=== PATIENT | female | born 1950 | race Caucasian/White ===

== ENCOUNTER 2022-04-02 13:28 | Outpatient (CLI) | payer MEDICARE, OTHER, SELFPAY ==
--- NOTE | 2022-04-02 13:40 | CRLHL7_ITS ---
For Patients: As a result of the Century Cures Act, medical imaging exams and procedure reports are released immediately into your electronic medical record. You may view this report before your referring provider. If you have questions, please contact your health care provider. BILATERAL MAMMOGRAM WITH COMPUTER-AIDED DETECTION AND TOMOSYNTHESIS TECHNIQUE: CC and MLO views were obtained. These mammographic images have been obtained using full-field digital technique. These mammographic images were interpreted with the benefit of computer-aided detection. Breast Tomosynthesis was used in this interpretation. COMPARISON FILM: 03/30/2021, 03/28/2020, 03/26/2019. FINDINGS: There are scattered areas of fibroglandular density IMPRESSION: There is no radiographic evidence for malignancy. ASSESSMENT: BI-RADS Category 1: Negative RECOMMENDATION: Routine screening mammogram in 1 year. A lay language report of this examination will be provided to the patient. Mode Whalen M.D. Diagnostic Radiologist [email or web address] FLETCHER/Dictated by: Mode Whalen MD @ 04/03/2022 10:51:00 AM (Electronically Signed)
== END 2022-04-02 13:29 | disposition home or self-care (01) ==
LOC: MAMMO 13:30
PROVIDERS: PCP Internal Medicine; Visit Provider Internal Medicine
DX: Z12.31 Encounter for screening mammogram for malignant neoplasm of breast (principal); R92.2 Inconclusive mammogram
CPT/HCPCS: 77063; 77067

== ENCOUNTER 2023-04-03 09:04 | Outpatient (CLI) | payer OTHER, SELFPAY | END 2023-04-03 09:05 | disposition home or self-care (01) | PROVIDERS: PCP Internal Medicine; Referring Provider Internal Medicine; Visit Provider Internal Medicine | DX: M85.80 Other specified disorders of bone density and structure, unspecified site (principal); E03.9 Hypothyroidism, unspecified | CPT/HCPCS: 82306; 84443 ==

== ENCOUNTER 2023-04-08 18:49 | Outpatient (CLI) | payer OTHER, SELFPAY ==
--- NOTE | 2023-04-08 19:00 | CRLHL7_ITS ---
For Patients: As a result of the Cures Act, medical imaging exams and procedure reports are released immediately into your electronic medical record. You may view this report before your referring provider. If you have questions, please contact your health care provider. BILATERAL SCREENING MAMMOGRAM WITH COMPUTER-AIDED DETECTION AND TOMOSYNTHESIS TECHNIQUE: CC and MLO views were obtained. These mammographic images have been obtained using full-field digital technique. These mammographic images were interpreted with the benefit of computer-aided detection. Breast tomosynthesis was used in this interpretation. COMPARISON FILM: 04/02/22, 03/30/21, 03/28/20. FINDINGS: There are scattered areas of fibroglandular density. IMPRESSION: There is no radiographic evidence for malignancy. ASSESSMENT: BI-RADS Category 1: Negative RECOMMENDATION: Routine screening mammogram in 1 year. A lay language report of this examination will be provided to the patient. JUANY HUGGINS M.D. Diagnostic/Nuclear Medicine Radiologist [email or web address] MONTSERRAT:hao Transcribed: 04/09/2023, 6:[address]/Dictated by: Juany Huggins MD @ 04/09/2023 8:48:00 AM (Electronically Signed)
== END 2023-04-08 18:50 | disposition home or self-care (01) ==
LOC: MAMMO 18:50
PROVIDERS: PCP Internal Medicine; Visit Provider Internal Medicine
DX: Z12.31 Encounter for screening mammogram for malignant neoplasm of breast (principal)
CPT/HCPCS: 77063; 77067

== ENCOUNTER 2023-04-30 14:14 | Outpatient (CLI) | payer OTHER, SELFPAY ==
--- NOTE | 2023-04-30 14:30 | CRLHL7_ITS ---
For Patients: As a result of the Century Cures Act, medical imaging exams and procedure reports are released immediately into your electronic medical record. You may view this report before your referring provider. If you have questions, please contact your health care provider. DXA BONE MINERAL DENSITY STUDY Reason for exam: Osteopenia. Current height (in): 63.5. Weight (lb): 130. Menopause age: 46. Ethnicity: White. 1. Have you had a previous hip or vertebral fracture? No. 2. Have you had any fractures during your adult life which did not result from significant trauma (e.g., auto accident)? No. 3. Did either of your parents have a hip fracture? No. 4. Do you smoke? No. 5. Have you ever taken Glucocorticoids? No. 6. Do you have rheumatoid arthritis? No. 7. Do you have secondary osteoporosis? No. 8. Do you drink 3 or more alcoholic drinks per day? No. 9. Are you being treated for osteoporosis? No. 10. Have you ever taken any of the following medications: Actonel, Evista, Fosamax, Miacalcin, Reclast, Boniva, Forteo, HRT (i.e., estrogen/hormone therapy), Protelos, Prolia, Vitamin D, Calcium, other ??? please specify. ANSWER: Yes, Fosamax, vitamin D, and calcium. 11. Do you have any of the following medical conditions: Anorexia or bulimia, asthma or emphysema, end stage renal disease, hyperparathyroidism, any seizure disorders, cancer, inflammatory bowel diseases, hysterectomy, other ??? please specify. ANSWER: Yes, Hysterectomy and hypothyroidism. 12. What was your maximum height (inches)? 64.5. 13. Do you perform weight bearing exercise regularly? No. 14. Do you regularly consume dairy products? No. 15. Do you drink caffeinated beverages? No. If female: 16. At what age did your period start? 13. 17. Are you premenopausal? No. 18. How many full-term pregnancies have you had? 1. 19. Have you ever missed your period for more than 6 months in a row (not including or menopause)? No. TECHNIQUE: Bone mineral density study was performed using the [employer]. FINDINGS: The results of the study expressed as bone mineral density (BMD) are as follows: Lumbar spine L1 to L4: BMD: 0.953 g/cm2. T-score: -0.9. Z-score: 1.5 Neck Left: BMD: 0.592 g/cm2. T-score: -2.3. Z-score: -0.3 Right: BMD: 0.566 g/cm2. T-score: -2.5. Z-score: -0.5 Total Left: BMD: 0.718 g/cm2. T-score: -1.8. Z-score: -0.1 Right: BMD: 0.698 g/cm2. T-score: -2.0. Z-score: -0.3 IMPRESSION: Osteoporosis. *Comparison exams done prior to 02/2020 were performed on different unit, [employer]. COMPARISON: Compared with scan of 04/20/2018, the bone mineral density has decreased by 7.4 percent at the spine and decreased by 2.1 percent at the hip. Compared with scan of 03/06/2015, the bone mineral density has increased by 1.7 percent at the spine and decreased by 3.6 percent at the hip. Mode Whalen M.D. Diagnostic Radiologist [email or web address] CORI/raquel garcía/Dictated by: Mode Whalen MD @ 05/01/2023 8:57:00 AM (Electronically Signed)
== END 2023-04-30 14:15 | disposition home or self-care (01) ==
PROVIDERS: PCP Internal Medicine; Visit Provider Internal Medicine
DX: M85.851 Other specified disorders of bone density and structure, right thigh (principal); M85.852 Other specified disorders of bone density and structure, left thigh; M81.0 Age-related osteoporosis without current pathological fracture
CPT/HCPCS: 77080

== ENCOUNTER 2024-04-09 09:01 | Outpatient (CLI) | payer OTHER, SELFPAY ==
--- OUTSIDE RECORDS SUMMARY | 2024-04-09 09:04 | XMS_ITS | Clinical Summary ---
Author Organization [facility] Address [place], [place] [address] Care Team Providers Care Mental Telepathist Name Role Phone Padmini López MD Primary Care Provider [phone]- [phone] Allergies Active Allergy Reactions Criticality Noted Date Comments Oxybutynin 04/18/2008 Neck swelled Medications Medication Sig Dispensed Refills Start Date End Date Status LEVOTHYROXINE 88 MCG TAB TAKE ONE TABLET BY MOUTH DAILY 90 Each 0 04/02/2009 Active calcium carbonate-vitamin D3, 500 mg-400 units, (CALCIUM 500 + D) tablet Take 2 tablets by mouth once daily. 0 01/30/2012 Active famotidine (PEPCID) 20 mg tablet Take 1 tablet by mouth 2 times daily. 0 03/10/2020 Active alendronate (FOSAMAX) 35 mg tablet 05/18/2023 Active Active Problems Problem Noted Date Diagnosed Date Hallux rigidus 10/13/2007 Unspecified hypothyroidism 03/26/2007 Esophageal reflux 03/26/2007 Anxiety state, unspecified 03/26/2007 Eating disorder, unspecified 03/26/2007 Immunizations Name Administration Dates Next Due AMB Influenza, IIV3 (Age >=3 years)(Flu Clinic [facility]) 07/19/2008 Amb Influenza, Inactivated A IIV4 (Age 65+ Years) Preserv Free 06/07/2020 Td (Age >=7 Years) 04/26/2003 Family History * Patient is adopted Relation Name Status Comments Father adopte Mother adopted Social History Tobacco Use Types Packs/Day Years Used Date Smoking Tobacco: Former Cigarettes 1 6 1 966 - 1972 Smokeless Tobacco: Never Tobacco Cessation:Counseling Given: Yes Alcohol Use Standard Drinks/Week Comments Yes 0 (1 standard drink = 0.6 oz pur e alcohol) occasional Social Connections Answer Date Recorded Frequency of Communication with Friends and Fami ly Not on file 03/21/2023 Financial Resource Strain Answer Date R ecorded Difficulty of Paying Living Expenses Not on file 09/22/2021 Difficulty of Paying Living Expenses Not on file 09/22/2021 Sex and Gender Information Value Date Recorded Sex Assigned at Not on file Gender Identity Not on file Sexual Orientation Not on file Obstetrics History Last Filed Vital Signs Vital Sign Reading Time Taken Comments Blood Pressure 123/79 06/12/2023 1:49 PM CDT Pulse 71 06/12/2023 1:49 PM CDT Temperature 37.1 ??C (98.8 ??F) 06/12/2023 1:49 PM CD T Respiratory Rate 16 03/10/2020 10:46 AM CDT Oxygen Saturation 98% 06/12/2023 1:49 PM CDT Inhaled Oxygen Concentration - - Weight 62.4 kg (137 lb 9.6 oz) 03/10/2020 10:46 AM CDT Height 161 cm (5' 3.39) 03/10/2020 10:46 AM CDT Body Mass Index 24.08 03/10/2020 10:46 AM CDT Plan of Treatment Health Maintenance Due Date Last Done Comments Tdap [birth year]/25/1961 Depression screening for age 12+ 1960 Hepatitis C screening for age 18-79 1966 Colonoscopy through age 75 1993 Zoster (shingles) series for age 50+ (1 of 2) 1998 Lipids for age 45-75 04/26/2013 04/26/2008 Tetanus booster 04/26/2013 04/26/2003 DEXA/DXA scan for age 65+ 2013 04/30/2007 Medicare Wellness for age 65+ 2013 Pneumococcal series for age 65+ (1 of 1 - PCV) 2013 BMI (ht and wt on same day) for age 18+ 03/10/2021 03/10/2020 COVID-19 vaccine series ( season) 2023 03/29/2022, 07/31/2021, 11/06/2020 Influenza for age 65+ 05/23/2024 06/07/2020, 008 Procedures Procedure Name Priority Date/Time Associated Diagnosis Comments LIPID PANEL Routine 04/26/2008 7:52 AM CDT Screening Lipid Disorders XR DXA BONE DENSITY 2 SITES AXIAL Routine 04/30/2007 9:45 AM CDT Absence Of Menstruation from Last 3 Months or Most Recently Relevant to Health Maintenance Results * LIPID PANEL (04/26/2008 7:52 AM CDT) CHOLESTEROL,TOTAL 197 110 - 199 mg/dL [facility] TRIGLYCERIDES 90 <150 mg/dL [facility] HDL CHOLESTEROL 70 >40 mg/dL [facility] CHOL/HDL RATIO 2.81 <4.51 [facility] LDL CHOLESTEROL 109 <131 mg/dL [facility] PATIENT STATUS Fasting [facility] Blood specimen (specimen) BLOOD SPECIMEN / Unknown 04/26/2008 7:52 AM CDT 04/26/2008 7:51 AM CDT Mariano Mathur MD CHEMISTRY Performing Organization Address City/State/[facility] Co de Phone Number [facility] [address] [place] [address] * XR DEXA BONE DENSITY 2 SITES (04/30/2007 9:45 AM CDT) Anatomical Region Laterality Modality Spine, HIPS, HIPL, HIPR Other 04/30/2007 9:45 AM CDT Narrative 05/06/2007 9:55 AM CDT Please see scanned document for results of this study. Procedure Note Zia Green MD - 05/06/2007 Please see scanned document for results of this study. Mariano Mathur MD DEXA from Last 3 Months or Most Recently Relevant to Health Maintenance Care Teams Mental Telepathist Relationship Specialty Start Date End Date Padmnii López MD [address] [place] [address] PCP - General Internal Medicine 06/04/19
--- NOTE | 2024-04-09 09:15 | CRLHL7_ITS ---
For Patients: As a result of the Century Cures Act, medical imaging exams and procedure reports are released immediately into your electronic medical record. You may view this report before your referring provider. If you have questions, please contact your health care provider. BILATERAL SCREENING MAMMOGRAM WITH COMPUTER-AIDED DETECTION AND TOMOSYNTHESIS TECHNIQUE: CC and MLO views were obtained. These mammographic images have been obtained using full-field digital technique. These mammographic images were interpreted with the benefit of computer-aided detection. Breast Tomosynthesis was used in this interpretation. COMPARISON FILM: 04/08/23, 04/02/22, 03/30/21. FINDINGS: There are scattered areas of fibroglandular density. IMPRESSION: There is no radiographic evidence for malignancy. ASSESSMENT: BI-RADS Category 1: Negative RECOMMENDATION: Routine screening mammogram in 1 year. A lay language report of this examination will be provided to the patient. Mode Whalen M.D. Diagnostic Radiologist [email or web address] SP/Dictated by: Mode Whalen MD @ 04/09/2024 11:44:00 AM (Electronically Signed)
== END 2024-04-09 09:02 | disposition home or self-care (01) ==
LOC: MAMMO 09:03
PROVIDERS: PCP Internal Medicine; Visit Provider Internal Medicine
DX: Z12.31 Encounter for screening mammogram for malignant neoplasm of breast (principal)
CPT/HCPCS: 77063; 77067

== ENCOUNTER 2024-04-12 16:40 | Outpatient (CLI) | payer OTHER, SELFPAY ==
--- OUTSIDE RECORDS SUMMARY | 2024-04-12 09:27 | XMS_ITS | Clinical Summary ---
Author Organization [employer] [facility] Address [place], [place] [address] Care Team Providers Care Water Team Leader Name Role Phone Padmini López MD Primary Care Provider +1- [phone] Allergies Active Allergy Reactions Criticality Noted Date [...] CDT) CHOLESTEROL,TOTAL 197 110 - 199 mg/dL [facility] TRIGLYCERIDES 90 <150 mg/dL [facility] HDL CHOLESTEROL 70 >40 mg/dL [facility] CHOL/HDL RATIO 2.81 <4.51 [facility] LDL CHOLESTEROL 109 <131 mg/dL [facility] PATIENT STATUS Fasting [facility] Blood specimen (specimen) BLOOD SPECIMEN / Unknown 04/26/2008 7:52 AM CDT 04/26/2008 7:51 AM CDT Mariano Mathur MD CHEMISTRY Performing Organization Address City/State/[facility] Co de Phone Number [facility] [address] [place] [address] * XR DEXA BONE DENSITY 2 SITES [...] Recently Relevant to Health Maintenance Care Teams Water Team Leader Relationship Specialty Start Date End Date Padmini López MD [address] [place] [address] PCP - General Internal Medicine 06/04/19
== END 2024-04-12 16:41 | disposition home or self-care (01) ==
PROVIDERS: PCP Internal Medicine; Visit Provider Internal Medicine
DX: E03.9 Hypothyroidism, unspecified (principal); M85.80 Other specified disorders of bone density and structure, unspecified site
CPT/HCPCS: 82306; 84443

== ENCOUNTER 2024-06-03 08:45 | Outpatient (RCR) | payer OTHER, SELFPAY ==
--- NOTE | 2024-04-26 10:04 | PT.OPEX ---
PT [place] Outpatient Eval PT [facility] Outpatient Eval Start: 04/26/24 08:37 Freq: Status: Active Protocol: Document 04/26/24 08:37 SILVESTRE (Rec: 04/26/24 09:34 SILVESTRE [id number]) E-signed By Jenny Mckenna DPT Physical Therapy Outpatient Evaluation Insurance Information Recert Due Date 07/25/24 Insurance Name [employer],Medicare B Medical Diagnosis M67.912 L shoulder unspecified disorder of synovium and tendon Treating Diagnosis M25.512 L shoulder pain M25.612 L shoulder stiffness M62.512 L shoulder weakness Subjective Subjective Patient reports L shoulder pain for the last 4-5 months. She denies any injury or trauma, no falls. States she had L shoulder pain earlier this year and it resolved with time but then returned again a few months later. She feels pain/sx are worse this time. She has increased pain with certain movements, reaching up , out, back. Sleep is interrupted at times. She is using tylenol as needed, usually during the night, some in the morning. Hasn't tried ice/heat. She reports achiness, soreness in L shoulder at rest, increased pain with use of L shoulder/UE . Pain range 5-7/10. She is L handed. She has been able to work through the pain for daily activities, avoiding some more physical activities. She reports having PT for her L shoulder about 6 years ago. No prior injections, surgeries to L shoulder. Date of Last Physician Visit 04/12/24 Current Work Status Retired Assessment Assessment/Impression Patient is a 73 year old female with L shoulder pain, L shoulder tightness/stiffness, impaired L shoulder ROM, impaired L shoulder strength, limited use of L shoulder/UE for lifting/reaching. Pain range 5-7/10. Patient with increased pain in the morning and with reaching up/out or behind her LB. L shoulder AROM: flex 150 degrees with pain, abd 150 degrees with pain, IR behind LB to mid t- spine with pain, ER with hand behind head to upper t-spine. L shoulder MMT: flex 4-/5 with pain, abd 4-/5 with pain, IR/ER 4/5. Patient reports some increased soreness in L shoulder with PT assessment this session. Able to initiate some exercises for HEP. Reviewed pain management strategies and discussed goal of not pushing into pain with her daily activities. Patient is tight, tender with palpation L shoulder region, including UT, supraspinatus, RC tendons, bicep tendon. MT to L shoulder region this session to decrease pain, tightness. Patient to ice when she gets home, encouraged her to drink water after deep tissue work. She expressed understanding. Patient would benefit from skilled PT for pain/sx management, improved L shoulder ROM, improved L shoulder strength/stability, posture/body mechanics training, and establishment of HEP. Plan of Care Rehabilitation Potential Good Physical Therapy Goals 1. Decrease L shoulder pain to less than/equal to 3/10 with daily/housework activities and with the progression of PT activities over the next 4-6 weeks. 2. Decrease L shoulder pain so that patient is able to sleep through the night on a regular basis within 3-4 weeks. 3. Return to L shoulder AROM WFL and pain free within 4-6 weeks for return to daily/housework activities and work outs without flare up of pain. 4. Patient will be educated on posture and body mechanics over the next 4-6 weeks for decreased stress to UBN/shoulder region, improved shoulder mechanics, and decreased shoulder pain. 5. Improve L shoulder strength to WFL over the next 8-10 weeks for return to PLF with daily/housework activities without flare up of pain. 6. Patient will be I with HEP within 10 weeks for progression toward above goals, ongoing self management of pain/sx, ongoing self improvements in posture/shoulder strength/ mechanics, and for return to PLF with daily/work/workout activities without flare up of pain. Coordination/Communication With Referral Source Treatment Plan/Direct Interventions Manual Therapy,Therapeutic Exercises Frequency/Duration 1x/week Patient Will Be Discharged From Therapy Completion of LTG(s),Skills Plateau,Independent w/HEP, Independently Progressing Evaluation Billing Untimed Code Treatment Minutes 26 Complexity Moderate Certification Information Initial Certification Date 04/26/24 Ending Certification Date 07/25/24 Provider Signature Required Yes Provider Signature Shows Agreement With POC & Medical Necessity Physician NPI Number Write NPI# Here Physician Comment/Change : Physician Signature & Date Requested Please Sign/Date Here
== END 2024-10-01 23:59 | disposition home or self-care (01) ==
PROVIDERS: PCP Internal Medicine; Visit Provider Internal Medicine
DX: M67.912 Unspecified disorder of synovium and tendon, left shoulder (principal); M25.512 Pain in left shoulder; M25.612 Stiffness of left shoulder, not elsewhere classified; M62.512 Muscle wasting and atrophy, not elsewhere classified, left shoulder; Z51.89 Encounter for other specified aftercare
CPT/HCPCS: 97110; 97140; 97162

== ENCOUNTER 2025-04-11 08:11 | Outpatient (CLI) | payer OTHER, SELFPAY ==
--- NOTE | 2025-04-11 08:15 | CRLHL7_ITS ---
For Patients: As a result of the Century Cures Act, medical imaging exams and procedure reports are released immediately into your electronic medical record. You may view this report before your referring provider. If you have questions, please contact your health care provider. INDICATION: BILATERAL SCREENING MAMMOGRAM, ASYMPTOMATIC 74 Y/O FEMALE COMPARISON: 04/09/2024, 04/08/2023, 04/02/2022 TECHNIQUE: Digital mammogram in CC and MLO projections including computer-aided detection (CAD) and tomosynthesis. BREAST COMPOSITION: There are scattered areas of fibroglandular density. FINDINGS: No suspicious findings. ASSESSMENT: BI-RADS 1 Negative RECOMMENDATION: Annual screening mammogram. A lay language report of this examination will be provided to the patient. Dictated by: Cynthia Edwards MD @ 04/14/2025 07:46:13 (Electronically Signed)
== END 2025-04-11 08:12 | disposition home or self-care (01) ==
PROVIDERS: PCP Internal Medicine; Visit Provider Internal Medicine
DX: Z12.31 Encounter for screening mammogram for malignant neoplasm of breast (principal)
CPT/HCPCS: 77063; 77067

== ENCOUNTER 2025-04-14 09:06 | Outpatient (CLI) | payer OTHER, SELFPAY | END 2025-04-14 09:07 | disposition home or self-care (01) | PROVIDERS: PCP Internal Medicine; Visit Provider Internal Medicine | DX: E03.9 Hypothyroidism, unspecified (principal); M85.80 Other specified disorders of bone density and structure, unspecified site; Z13.1 Encounter for screening for diabetes mellitus | CPT/HCPCS: 80061; 82306; 82947; 84443 ==

== ENCOUNTER 2025-06-08 11:38 | Emergency (ER) | payer OTHER, SELFPAY ==
[2025-06-08 11:52] VITALS: BP 123/67; PULSE 85; RESP 18; TEMP 36.6; O2SAT 98; BMI 23.0
--- OUTSIDE RECORDS SUMMARY | 2025-06-08 13:54 | XMS_ITS | Clinical Summary ---
Author Organization [facility] Address [address] [place] [address] Care Team Providers Care Boat Crew Deck Hand Name Role Phone Padmini López MD Primary Care Provider +1- [phone] Allergies Active Allergy Reactions Criticality Noted Date Comments Oxybutynin 04/18/2008 Neck swelled Medications LEVOTHYROXINE 88 MCG TAB TAKE ONE TABLET BY MOUTH DAILY 90 Each 0 04/02/2009 Active calcium carbonate-vitam in D3, 500 mg-400 units, (CALCIUM 500 + [...] unspecified 03/26/2007 Eating disorder, unspecified 03/26/2007 Immunizations Immunization Administration Dates Next Due AMB Influenza, IIV3 [...] Paying Living Expenses Not on file 09/22/2021 Comments No Sex and Gender Information Value Date Recorded Sex Assigned at Not on file Legal Sex Female 6:17 AM WINDOWS SYSTEM ADMIN Gender Identity Not on file Sexual Orientation Not on file Obstetrics History Last Filed Vital Signs Vital Sign Reading Time Taken Comments Blood Pressure 123/79 06/12/2023 1:49 PM CDT Pulse 71 06/12/2023 1:49 PM CDT Temperature 37.1 C (98.8 F) 06/12/2023 1:49 PM CDT Respiratory Rate 16 03/10/2020 10:46 AM CDT Oxygen Saturation 98% 06/12/2023 1:49 PM CDT Inhaled Oxygen Concentration - - Weight 62.4 kg (137 lb 9.6 oz) 03/10/2020 10:46 AM CDT Height 161 cm (5' 3.39) 03/10/2020 10:46 AM CDT Body Mass Index 24.08 03/10/2020 10:46 AM CDT Plan of Treatment Health Maintenance Due Date Last Done Comments Depression screening for age 12+ 1960 Hepatitis C screening for ag e 18-79 1966 Pneumococcal series for age 50+ (1 of 1 - PCV) 1998 Zoster (shingles) series for age 50+ (1 of 2) 1998 Tetanus booster 04/26/2013 04/26/2003 DEXA/DXA scan for age 65+ 2013 04/30/2007 Medicare Wellness for age 65+ 2013 BMI (ht and wt on same day) for age 18+ 03/10/2021 03/10/2020 RSV vaccine for adults or (1 - 1-dose 75+ series) 12/25/2023 COVID-19 vaccine series ( - season) 2025 03/29/2022, 07/31/2021, 11/06/2020 Influenza Vaccine (#1) 2025 0, 07/19/2008 Hepatitis B series for 19+ Aged Out N o longer eligible based on patient's age to complete this topic Procedures Procedure Name Priority Date/Time Associated Diagnosis Comments XR DXA BONE DENSITY 2 SITES AXIAL Routine 04/30/2007 9:45 AM CDT Absence Of Menstruation from Last 3 Months or Most Recently Relevant to Health Maintenance Results * XR DEXA BONE DENSITY 2 SITES (04/30/2007 9:45 AM CDT) Anatomical Region Laterality Modality Spine, HIPS, HIPL, HIPR Other 04/30/2007 9:45 AM CDT Narrative 05/06/2007 9:55 AM CDT Please see scanned document for results of this study. Procedure Note Zia Green MD - 05/06/2007 Please see scanned document for results of this study. us Mariano Mathur MD DEXA Final Res ult from Last 3 Months or Most Recently Relevant to Health Maintenance Insurance MEDICARE ADVANTAGE MR Care Teams Boat Crew Deck Hand Relationship Specialty Start Date End Date Padmini López MD [address] [place] [address] PCP - General Internal Medicine 06/04/19
== END 2025-06-08 13:52 | disposition left against medical advice (07) ==
LOC: ED 13:52
PROVIDERS: Emergency Provider Emergency Medicine Emergency Medical Services; PCP Internal Medicine
DX: Z53.21 Procedure and treatment not carried out due to patient leaving prior to being seen by health care provider (principal)
CPT/HCPCS: 99281

== ENCOUNTER 2025-07-26 09:52 | Outpatient (CLI) | payer OTHER, SELFPAY ==
--- NOTE | 2025-07-26 11:26 | P.ANES_ITS ---
Anesthesia Charges Start Date/Time Anesthesia Start Date: 07/26/25 Anesthesia Start Time: 11:04 Stop Date/Time Anesthesia Stop Date: 07/26/25 Anesthesia Stop Time: 11:30 Coding CPT Codes CPT Codes: VINNIE LWR INTST SCR COLSC - 17329 ([id number]) P1 - NORMAL HEALTHY PATIENT, QK - FIRST GRADE TEACHER 2-4 CNCRNT ANES PROC, QX - IC ENGINEER SVC W/ MED DIRECTION
--- NOTE | 2025-07-26 11:26 | W.ANESCHARGE ---
Anesthesia Charges Start Date/Time Anesthesia Start Date: 07/26/25 Anesthesia Start Time: 11:04 Stop Date/Time Anesthesia Stop Date: 07/26/25 Anesthesia Stop Time: 11:30 Coding CPT Codes CPT Codes: VINNIE LWR INTST SCR COLSC - 12432 ([id number]) P1 - NORMAL HEALTHY PATIENT, QK - PRECIPITATOR OPERATOR 2-4 CNCRNT ANES PROC, QX - HOSTEL MANAGER SVC W/ MED DIRECTION
--- NOTE | 2025-07-26 11:56 | P.ANES_ITS ---
Anesthesia Charges Start Date/Time Anesthesia Start Date: 07/26/25 Anesthesia Start Time: 11:04 Stop Date/Time Anesthesia Stop Date: 07/26/25 Anesthesia Stop Time: 11:30 Summary Extremes of Age - Over 70 or under 1: MDA Coding CPT Codes CPT Codes: VINNIE LWR INTST SCR COLSC - 31928 ([id number]) P1 - NORMAL HEALTHY PATIENT, QK - GLUE BONE DRIER 2-4 CNCRNT ANES PROC, QX - MANUFACTURING TECHNOLOGY ANALYST SVC W/ MD MED DIRECTION Additional Codes: Summary - Extremes of Age - Over 70 or under 1: MDA ([id number])
--- NOTE | 2025-07-26 11:56 | W.ANESCHARGE ---
Anesthesia Charges Start Date/Time Anesthesia Start Date: 07/26/25 Anesthesia Start Time: 11:04 Stop Date/Time Anesthesia Stop Date: 07/26/25 Anesthesia Stop Time: 11:30 Summary Extremes of Age - Over 70 or under 1: MDA Coding CPT Codes CPT Codes: VINNIE LWR INTST SCR COLSC - 41813 ([id number]) P1 - NORMAL HEALTHY PATIENT, QK - SHOWER ATTENDANT 2-4 CNCRNT ANES PROC, QX - SUPERVISOR LOOPING SVC W/ MD MED DIRECTION Additional Codes: Summary - Extremes of Age - Over 70 or under 1: MDA ([id number])
== END 2025-07-26 09:53 | disposition home or self-care (01) ==
LOC: OP CLINIC 09:52
PROVIDERS: PCP Internal Medicine; Visit Provider Internal Medicine
DX: Z12.11 Encounter for screening for malignant neoplasm of colon (principal)
CPT/HCPCS: 00812; 45378; 99100; J2704